=== PATIENT | male | born 1970 | race Caucasian/White ===

== ENCOUNTER 2016-10-18 08:57 | Emergency (ER) | payer MEDICAID ==
[~2016-10-18] VITALS: Ht 170.2 cm; Wt 87.6 kg
[2016-10-18 09:09] VITALS: BP 143/83
[2016-10-18] MEDS ORDERED: CEPHALEXIN 500 MG CAPSULE PO ONE (10:02)
[2016-10-18] MEDS ORDERED: LIDOCAINE 1%, 20ML ONE (10:03)
[2016-10-18] MEDS ORDERED: CEPHALEXIN 500 MG CAPSULE ONE (10:08)
[2016-10-18] MEDS ORDERED: LIDOCAINE 1%, 20ML SQ ONE (10:30)
[2016-10-18] MEDS ORDERED: OXYcodone/APAP 10/325MG TABLET PO ONE (10:30)
[2016-10-18] MEDS ORDERED: OXYcodone/APAP 10/325MG TABLET ONE (10:54)
[2016-10-19] MEDS ORDERED: HYDR25TA11 PO (14:17)
[2016-10-19] MEDS ORDERED: PRED10TA PO (14:17)
== END 2016-10-18 12:16 | disposition home or self-care (01) ==
LOC: ED 12:10
DX: L01.03 Bullous impetigo (principal); K13.0 Diseases of lips; Z88.0 Allergy status to penicillin
CPT/HCPCS: 40800

== ENCOUNTER 2016-10-19 12:17 | Inpatient (IN) | payer MEDICAID ==
[~2016-10-19] VITALS: Ht 170.2 cm; Wt 85.0 kg
[2016-10-19] MEDS ORDERED: CLINDAMYCIN PMX 600MG/50ML 50 ML IV ONE (13:30)
[2016-10-19] MEDS ORDERED: CLINDAMYCIN PMX 600MG/50ML 50 ML ONE (13:36)
[2016-10-19 13:49] LABS: BLOOD UREA NITROGEN 11 mg/dL (7-18)
[2016-10-19] MEDS ORDERED: PRED10TA PO (14:17)
[2016-10-19] MEDS ORDERED: HYDR25TA11 PO (14:17)
[2016-10-19] MEDS ORDERED: ONDANSETRON 2MG/ML, 2ML IVPush ONE (14:30)
[2016-10-19] MEDS ORDERED: morphine SULFATE 10 MG/ML, 1ML IVPush ONE (14:30)
[2016-10-19] MEDS ORDERED: POTASSIUM CHLORIDE 20 MEQ TAB.ER.PRT ONE (14:56)
[2016-10-19] MEDS ORDERED: MORPHINE SULFATE 4 MG/ML, 1ML ONE (14:56)
[2016-10-19] MEDS ORDERED: ONDANSETRON 2MG/ML, 2ML ONE (14:56)
[2016-10-19] MEDS: ENOXAPARIN 40 MG/0.4 ML SQ SCH (15:00)
[2016-10-19] MEDS ORDERED: BISACODYL 10 MG SUPP PR PRN (15:00)
[2016-10-19] MEDS ORDERED: POTASSIUM CHLORIDE 20 MEQ TAB.ER.PRT PO ONE ×2 (15:00→20:30)
[2016-10-19] MEDS ORDERED: ONDANSETRON 2MG/ML, 2ML IVPush PRN (15:00)
[2016-10-19] MEDS ORDERED: ONDANSETRON ODT 4 MG PO PRN (15:00)
[2016-10-19] MEDS ORDERED: POLYETHYLENE GLYCOL 17 GM PACKET PO PRN (15:00)
[2016-10-19] MEDS ORDERED: DOCUSATE 100 MG CAPSULE PO PRN (15:00)
[2016-10-19] MEDS ORDERED: LABETALOL 5MG/ML, 20ML IVPush PRN (15:00)
[2016-10-19] MEDS ORDERED: ACETAMINOPHEN 325 MG TABLET PO PRN (15:00)
[2016-10-19 16:17] VITALS: BP 134/82
[2016-10-19] MEDS: HYDROcodone/APAP 5/325 TABLET PO PRN ×2 (17:41→21:42)
[2016-10-19 19:40] VITALS: BP 111/76
[2016-10-19] MEDS: CLINDAMYCIN PMX 600MG/50ML 50 ML IV SCH (21:33)
[2016-10-19] MEDS: POTASSIUM CHLORIDE 20 MEQ in SODIUM CHLORIDE 0.9% 1,000 ML IV SCH (21:33)
[2016-10-20 04:26] VITALS: BP 129/80
[2016-10-20] MEDS: HYDROcodone/APAP 5/325 TABLET PO PRN ×3 (05:11→14:05)
[2016-10-20 05:46] LABS: BLOOD UREA NITROGEN 12 mg/dL (7-18)
[2016-10-20] MEDS: CLINDAMYCIN PMX 600MG/50ML 50 ML IV SCH ×2 (05:55→14:06)
[2016-10-20] MEDS ORDERED: POTASSIUM CHLORIDE 20 MEQ TAB.ER.PRT PO SCH (08:00)
[2016-10-20] MEDS: POTASSIUM CHLORIDE 20 MEQ in SODIUM CHLORIDE 0.9% 1,000 ML IV SCH (08:06)
[2016-10-20 08:46] VITALS: BP 107/69
[2016-10-20] MEDS ORDERED: LACT1CAP24 PO (11:48)
[2016-10-20] MEDS ORDERED: CLIN300C93 PO (11:48)
[2016-10-20] MEDS: ENOXAPARIN 40 MG/0.4 ML SQ SCH (15:00)
[2016-10-20 16:39] VITALS: BP 120/72
== END 2016-10-20 16:59 | disposition home or self-care (01) | DRG 603 ==
LOC: ED 14:34 → EDIP 14:56 → 4NOR 15:55
DX: L01.03 Bullous impetigo (principal); L30.9 Dermatitis, unspecified; R21 Rash and other nonspecific skin eruption; D64.9 Anemia, unspecified; E87.6 Hypokalemia; F17.210 Nicotine dependence, cigarettes, uncomplicated; K13.0 Diseases of lips; K08.409 Partial loss of teeth, unspecified cause, unspecified class; Z66 Do not resuscitate; Z79.52 Long term (current) use of systemic steroids; Z91.19 Patient's noncompliance with other medical treatment and regimen; Z86.14 Personal history of Methicillin resistant Staphylococcus aureus infection; Z56.0 Unemployment, unspecified; Z88.1 Allergy status to other antibiotic agents; Z88.0 Allergy status to penicillin; Z88.2 Allergy status to sulfonamides; Z88.7 Allergy status to serum and vaccine; Z88.8 Allergy status to other drugs, medicaments and biological substances; Z79.899 Other long term (current) drug therapy
CPT/HCPCS: 36415; 80048; 82040; 83605; 83735; 84100; 84132; 85025; 87040; 96365; J2405; J3480; J2270; J7030

== ENCOUNTER 2019-08-27 13:12 | Emergency (ER) | payer MEDICAID ==
[~2019-08-27] VITALS: Ht 170.2 cm; Wt 87.4 kg
[~2019-08-27 13:12] MED LIST: CLIN300C8 PO; HYDR-826 PO; LACT1CAP24 PO; PRED10TA PO
[2019-08-27 13:15] VITALS: BP 140/86
--- NOTE | 2019-08-27 13:35 | NUR ---
ERP WAS IN TO SEE PT.
--- NOTE | 2019-08-27 14:14 | NUR ---
D/C INSTRUCTIONS, MEDS & F/U APPT RV'WD WITH PT, HE VERBALIZES UNDERSTANDING. RX GIVEN X2. Addendum: 08/27/19 at 1439 by VIVEK PT AMBULATED OUT OF ED WITHOUT DIFFICULTY.
== END 2019-08-27 14:37 | disposition home or self-care (01) ==
LOC: ED 13:36
DX: B02.9 Zoster without complications (principal)
CPT/HCPCS: 99283

== ENCOUNTER 2020-03-04 16:26 | Emergency (ER) | payer MEDICAID ==
[~2020-03-04] VITALS: Ht 172.7 cm; Wt 88.9 kg
[2020-03-04 16:29] VITALS: BP 135/89
--- NOTE | 2020-03-04 16:38 | NUR ---
Pt to room from triage, ambulatory with steady gait. Pt refusing to change into hospital gown.
--- NOTE | 2020-03-04 17:01 | NUR ---
[employer] officers at bedside to speak with pt.
--- NOTE | 2020-03-04 17:58 | NUR ---
Pt not in room, unable to be located in department. PA made aware.
== END 2020-03-04 18:00 | disposition left against medical advice (07) ==
LOC: ED 16:30
DX: H92.02 Otalgia, left ear (principal); M54.2 Cervicalgia; M54.5 Low back pain; Z53.21 Procedure and treatment not carried out due to patient leaving prior to being seen by health care provider

== ENCOUNTER 2020-03-16 22:20 | Emergency (ER) | payer MEDICAID ==
[~2020-03-16] VITALS: Ht 170.2 cm; Wt 89.7 kg
[2020-03-16 22:22] VITALS: BP 154/104
--- NOTE | 2020-03-16 22:50 | NUR ---
XR tech attempted to call pt for XR. NILx1.
--- NOTE | 2020-03-16 22:58 | NUR ---
XR tech attempted to call pt for XR. NILx2.
--- NOTE | 2020-03-16 23:22 | NUR ---
NIL X3
== END 2020-03-16 23:23 | disposition left against medical advice (07) ==
LOC: ED 23:00
DX: M25.512 Pain in left shoulder (principal)
CPT/HCPCS: 99281